=== PATIENT | female | born 1990 | race Hispanic/Latino ===

== ENCOUNTER 2018-02-13 17:17 | Emergency (ER) | payer SELFPAY ==
[2018-02-13] MEDS ORDERED: ONDANSETRON 4 MG/2 ML VIAL ONE (19:31)
[2018-02-13] MEDS ORDERED: MORPHINE 4 MG/ML SYR ONE (19:31)
[2018-02-13 19:34] LABS: Absolute Lymphocytes (CBC) 2.5 K/uL (0.7-4.9); Absolute Monocytes 0.6 K/uL (0.1-1.3); Absolute Neutrophil 6.9 K/uL (1.8-8.0); Basophils % 0.7 % (0-1.3); Eosinophils % 1.7 % (0-4.4); Hematocrit 41.3 % (36.0-45.0); Lymphocytes % 24.4 % (15.3-44.8); MCH 31.9 pg (27.0-35.0); MCV 93.2 fL (80-100); MPV 9.6 fL (7.6-11.3); Monocytes % 5.7 % (3.3-12.3); RBC Red Blood Cell Count 4.43 M/uL (3.86-4.86)
[2018-02-13 19:38] LABS: Potassium 4.1 mmol/L (3.5-5.1)
--- NOTE | 2018-02-13 21:13 | RAD REPORT ---
EXAM DESCRIPTION: US - Pelvis Complete - 02/13/2018 9:03 pm CLINICAL HISTORY: Pelvic pain Preliminary findings provided at the time of the study. COMPARISON: None. TECHNIQUE: Transabdominal pelvic sonography was performed. FINDINGS: Endometrium is 2-3 mm in thickness. No focal endometrial abnormality. No myometrial mass. Uterus is 8.0 x 4.0 x 5.0 cm. No free fluid or blood in the cul-de-sac. Both ovaries are identified a nd normal size. Doppler evaluation shows normal blood flow the ovarian stroma. No suspicious ovarian or adnexal finding. IMPRESSION: Negative transabdominal pelvic ultrasound.
[2018-02-13 21:18] LABS: Urine Blood 1+ (NEG); Urine Glucose NEGATIVE (NEG); Urine Protein NEGATIVE (NEG); Urine Specific Gravity 1.025 (1.005-1.030); Urine pH 6.5 (5.0-7.0)
[2018-02-13] MEDS ORDERED: KETOROLAC 30 MG/ML INJ ONE (21:19)
--- NOTE | 2018-02-13 21:58 | EDPHYS ---
Physician Documentation [facility] Name: Clifton Burger Age: 27 yrs Sex: Female : 1990 Arrival Date: 02/13/2018 Time: 17:23 Bed 19 Private MD: None, None ED Physician Patrick Salgado HPI: 02/13 18:50 This 27 yrs old Female presents to ER via Ambulatory with complaints of jmm Vaginal Bleeding, Abdominal Cramping, Low Back Pain. 18:50 The patient presents with vaginal bleeding that is. Onset: The symptoms/episode jmm began/occurred gradually, 2 day(s) ago. Modifying factors: The symptoms are alleviated by nothing, the symptoms are aggravated by nothing. This is a 27 year old female with a history of pulmonary valve stenosis, ovarian cysts that presents to the ED with left sided pelvic pain. Patient states she is on day 2 of her cycle which is normally painful. Patient states she has to go to the ED regularly due to similar pain. . 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 - Social history:: Smoking status: Patient/guardian denies using tobacco. - Ebola Screening: : No symptoms or risks identified at this time. ROS: 18:50 Constitutional: Negative for fever, chills, and weight loss, Eyes: Negative for injury, jmm pain, redness, and discharge, Cardiovascular: Negative for chest pain, palpitations, and edema, Respiratory: Negative for shortness of breath, cough, wheezing, and pleuritic chest pain. 18:50 MS/Extremity: Negative for injury and deformity, Skin: Negative for injury, rash, and discoloration, Neuro: Negative for headache, weakness, numbness, tingling, and seizure. 18:50 : Positive for vaginal bleeding. 18:50 All other systems are negative. Exam: 18:50 Constitutional: The patient appears in no acute distress, alert, awake. jmm 18:50 Head/Face: atraumatic. Eyes: EOMI, no conjunctival erythema appreciated ENT: Moist jmm Mucus Membranes Neck: Trachea midline, Supple Chest/axilla: Normal chest wall appearance and motion. Cardiovascular: Regular rate and rhythm. No edema appreciated Respiratory: Normal respirations, no respiratory distress appreciated 18:50 Abdomen/GI: Inspection: abdomen appears normal, Palpation: soft, mild abdominal tenderness, in the suprapubic area. 18:50 Back: Normal ROM Skin: General appearance color normal MS/ Extremity: Moves all [facility] extremities, no obvious deformities appreciated, no edema noted to the lower extremities Neuro: Awake and alert, normal gait Psych: Behavior is normal, Mood is normal, Patient is cooperative and pleasant Vital Signs: 17:28 BP 125 / 80; Pulse 97; Resp 16; Temp 97.5; Pulse Ox 98% on R/A; Weight 70.76 kg; Height la1 5 ft. 5 in. (165.10 cm); 19:39 BP 128 / 70; Pulse 67; Resp 16; Pulse Ox 98% on R/A; lp1 20:30 BP 114 / 77; Pulse 61; Resp 16; Pulse Ox 99% on R/A; lp1 21:30 BP 126 / 80; Pulse 66; Resp 16; Pulse Ox 100% on R/A; lp1 17:28 Body Mass Index 25.96 (70.76 kg, 165.10 cm) la1 MDM: 18:50 Patient medically screened. antoine 21:48 Data reviewed: vital signs, nurses notes. Counseling: I had a detailed discussion with [facility] the patient and/or guardian regarding: the historical points, exam findings, and any diagnostic results supporting the discharge/admit diagnosis, lab results, radiology results, the need for outpatient follow up, to return to the emergency department if symptoms worsen or persist or if there are any questions or concerns that arise at home. Response to treatment: the patient's symptoms have markedly improved after treatment. 02/13 19:06 Order name: Abo/rh Typing; Complete Time: 20:59 [facility] 02/13 19:06 Order name: Basic Metabolic Panel; Complete Time: 20:59 [facility] 02/13 19:06 Order name: CBC with Diff; Complete Time: 20:59 [facility] 02/13 19:40 Order name: Urine Dipstick--Ancillary (enter results) [facility] 02/13 19:40 Order name: Urine --Ancillary (enter results); Complete Time: 22:26 [facility] 02/13 19:41 Order name: Urine Dipstick-Ancillary; Complete Time: 22:26 [facility] 02/13 19:06 Order name: IV Saline Lock; Complete Time: 19:26 [facility] 02/13 19:06 Order name: Labs collected and sent; Complete Time: 19:26 [facility] 02/13 19:06 Order name: US Pelvis Complete [facility] 02/13 20:40 Order name: ABO/RH no charge; Complete Time: 20:59 [facility] 02/13 21:14 Order name: US; Complete Time: 22:26 [facility] 02/13 19:06 Order name: NPO; Complete Time: 19:26 [facility] 02/13 19:06 Order name: Urine Dipstick-Ancillary (obtain specimen); Complete Time: :26 [facility] Administered Medications: 19:35 Drug: morphine 4 mg Route: IVP; Site: right antecubital; lp1 20:30 Follow up: Response: Pain is decreased lp1 19:35 Drug: Zofran 4 mg Route: IVP; Site: right antecubital; lp1 20:30 Follow up: Response: No adverse reaction lp1 21:14 Drug: Ketorolac 30 mg Route: IVP; Site: right antecubital; lp1 21:54 Follow up: Response: No adverse reaction lp1 Disposition: 02/14 07:38 Co-signature as Attending Physician, Patrick Salgado MD I agree with the assessment and antoine plan of care. Disposition: 02/13/18 21:58 Discharged to Home. Impression: Pelvic Pain. - Condition is Stable. - Discharge Instructions: Pelvic Pain, Female. - Prescriptions for Ultracet 37.5- 325 mg Oral Tablet - take 1 tablet by ORAL route every 6 hours - for up to 5 days; do not exceed 8 tablets per day.; 12 tablet. - Medication Reconciliation Form, Thank You Letter, Antibiotic Education, Prescription Opioid Use, Work release form form. - Follow up: Private Physician; When: 2 - 3 days; Reason: Recheck today's complaints, Continuance of care, Re-evaluation by your physician. Signatures: Dispatcher [employer] Patrick Klein MD MD cha Mickail, Joel, PA PA jmm Pena, Laura RN RN lp1 Enoch Spears RN RN la1 Corrections: (The following items were deleted from the chart) 02/13 22:05 21:58 02/13/2018 21:58 Discharged to Home. Impression: Pelvic Pain. Condition is lp1 Stable. Forms are Medication Reconciliation Form, Thank You Letter, Antibiotic Education, Prescription Opioid Use. Follow up: Private Physician; When: 2 - 3 days; Reason: Recheck today's complaints, Continuance of care, Re-evaluation by your physician. twan
--- NOTE | 2018-02-13 21:58 | ER ---
Nurse's Notes [facility] Name: Clifton Burger Age: 27 yrs Sex: Female : 1990 Arrival Date: 02/13/2018 Time: 17:23 Bed 19 Private MD: None, None Diagnosis: Pelvic Pain Presentation: 02/13 17:27 Presenting complaint: Patient states: I was told I have cysts on my ovaries and every la1 few months I have very heavy and painful periods, I am soaking like 3 pads per hour with clots and having a lot of abdominal cramping. Transition of care: patient was not received from another setting of care. Onset of symptoms was February 13, 2018. Risk Assessment: Do you want to hurt yourself or someone else? Patient reports no desire to harm self or others. Initial Sepsis Screen: Does the patient meet any 2 criteria? No. Patient's initial sepsis screen is negative. Does the patient have a suspected source of infection? No. Patient's initial sepsis screen is negative. Care prior to arrival: None. 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 - Social history:: Smoking status: Patient/guardian denies using tobacco. - Ebola Screening: : No symptoms or risks identified at this time. Screenin:41 Abuse screen: Denies threats or abuse. Denies injuries from another. Nutritional lp1 screening: No deficits noted. Tuberculosis screening: No symptoms or risk factors identified. Fall Risk None identified. Assessment: 19:15 General: Appears uncomfortable, Behavior is appropriate for age. Pain: Complains of lp1 pain in suprapubic area Pain currently is 8 out of 10 on a pain scale. Quality of pain is described as crampy, sharp. Neuro: Level of Consciousness is awake, alert, obeys commands, Oriented to person, place, time, situation. Cardiovascular: Patient's skin is warm and dry. Respiratory: Respiratory effort is even, unlabored. GI: Abdomen is non-distended. : Reports vaginal bleeding that is bright red. EENT: No signs and/or symptoms were reported regarding the EENT system. Derm: Skin is intact, Skin is dry, Skin is normal. Musculoskeletal: Circulation, motion, and sensation intact. 19:53 Reassessment: Ultrasound at bedside. lp1 21:00 Reassessment: Patient states pelvic pain radiating to back a this time; Aware of lp1 pending discharge. Vital Signs: 17:28 BP 125 / 80; Pulse 97; Resp 16; Temp 97.5; Pulse Ox 98% on R/A; Weight 70.76 kg; Height la1 5 ft. 5 in. (165.10 cm); 19:39 BP 128 / 70; Pulse 67; Resp 16; Pulse Ox 98% on R/A; lp1 20:30 BP 114 / 77; Pulse 61; Resp 16; Pulse Ox 99% on R/A; lp1 21:30 BP 126 / 80; Pulse 66; Resp 16; Pulse Ox 100% on R/A; lp1 17:28 Body Mass Index 25.96 (70.76 kg, 165.10 cm) la1 ED Course: 17:23 Patient arrived in ED. sb2 17:24 None, None is Private Physician. sb2 17:26 Concetta Shin FNP-C is PHCP. kb 17:26 Patrick Salgado MD is Attending Physician. kb 17:27 Triage completed. la1 17:28 Arm band placed on left wrist. la1 18:47 Ramesh Malone PA is PHCP. jmm 18:47 Patrick Salgado MD is Attending Physician. jm 19:06 Carlo Wood LVN is Primary Nurse. em 19:10 Inserted saline lock: 20 gauge in right antecubital area, using aseptic technique. lp1 Blood collected. 19:26 Samantha Doe, RN is Primary Nurse. lp1 19:41 Patient has correct armband on for positive identification. Placed in gown. Pulse ox lp1 on. NIBP on. 21:52 No provider procedures requiring assistance completed. lp1 22:04 IV discontinued, No redness/swelling at site. Pressure dressing applied. lp1 Administered Medications: 19:35 Drug: morphine 4 mg Route: IVP; Site: right antecubital; lp1 20:30 Follow up: Response: Pain is decreased lp1 19:35 Drug: Zofran 4 mg Route: IVP; Site: right antecubital; lp1 20:30 Follow up: Response: No adverse reaction lp1 21:14 Drug: Ketorolac 30 mg Route: IVP; Site: right antecubital; lp1 21:54 Follow up: Response: No adverse reaction lp1 Outcome: 21:58 Discharge ordered by . twan 22:04 Discharged to home ambulatory, with significant other. lp1 22:04 Condition: good 22:04 Discharge instructions given to patient, Instructed on discharge instructions, follow up and referral plans. medication usage, Demonstrated understanding of instructions, follow-up care, medications, Prescriptions given X 1. 22:05 Patient left the ED. lp1 Signatures: Concetta Shin, SUPERVISOR OF INSTRUCTION-C SUPERVISOR OF INSTRUCTION-CkRamesh Salvador PA PA jmm Munoz, Edgar, ADMINISTRATIVE AND PROGRAM SPECIALIST ADMINISTRATIVE AND PROGRAM SPECIALIST Samantha Gan RN RN lp1 Enoch Spears RN RN la1 Margo Zavala 2
== END 2018-02-13 22:05 | disposition home or self-care (01) ==
LOC: ER 17:17
DX: R10.2 Pelvic and perineal pain (principal); I37.0 Nonrheumatic pulmonary valve stenosis
CPT/HCPCS: 36415; 76856; 80048; 81003; 81025; 85025; 86900; 86901; 96374; 99284; J2405

== ENCOUNTER 2018-11-03 22:18 | Emergency (ER) | payer SELFPAY ==
[2018-11-03] MEDS ORDERED: MORPHINE 2 MG/ML SYR ONE (22:59)
[2018-11-03] MEDS ORDERED: NA CHLORIDE 0.9% 1,000 ML ONE (22:59)
[2018-11-03 23:28] LABS: Absolute Lymphocytes (CBC) 3.1 K/uL (0.7-4.9); Basophils % 0.7 % (0-1.3); Hematocrit 40.1 % (36.0-45.0); Lymphocytes % 31.7 % (15.3-44.8); MPV 9.6 fL (7.6-11.3); RBC Red Blood Cell Count 4.29 M/uL (3.86-4.86)
[2018-11-03 23:44] LABS: ALT/SGPT 14 U/L (12-78); AST/SGOT 9 U/L (15-37); Albumin 3.5 g/dL (3.4-5.0); Alkaline Phosphatase 50 U/L (45-117); BUN Blood Urea Nitrogen 10 mg/dL (7-18); Bicarbonate 26 mmol/L (21-32); Bilirubin Direct 0.1 mg/dL (0-0.2); Bilirubin Total 0.6 mg/dL (0.2-1.0); Glucose Level 80 mg/dL (74-106); Lipase 50 U/L (73-393); Potassium 3.7 mmol/L (3.5-5.1); Protein, Total 6.9 g/dL (6.4-8.2); Sodium Level 139 mmol/L (136-145)
[2018-11-04] MEDS ORDERED: MORPHINE 2 MG/ML SYR ONE (00:49)
--- NOTE | 2018-11-04 02:04 | ER ---
Nurse's Notes [facility] Name: Clifton Burger Age: 28 yrs Sex: Female : 1990 Arrival Date: 11/03/2018 Time: 22:21 Bed 13 Private MD: Diagnosis: Pain localized to other parts of lower abdomen-left lower Presentation: 11/03 22:36 Presenting complaint: Patient states: I HAVE HISTORY OF OVARIAN CYSTS AND I HAVE BEEN rv HAVING THIS EPISODES LIKE EVERY MONTH. PAIN USUALLY STARTS 1ST OR 2ND DAY OF MY MENSTRUATION. MY LEFT SIDE IS WORSE THAN MY RIGHT. PAIN IS LIKE THROBBING 10/10 AND CONTINUOUS. AND NOW I BLEED A LOT. I HAVE TWO PADS ALREADY IN THE LAST HOUR. Transition of care: patient was not received from another setting of care. Onset of symptoms was November 03, 2018 at 08:00. Risk Assessment: Do you want to hurt yourself or someone else? Patient reports no desire to harm self or others. Initial Sepsis Screen: Does the patient meet any 2 criteria? No. Patient's initial sepsis screen is negative. Does the patient have a suspected source of infection? No. Patient's initial sepsis screen is negative. Care prior to arrival: None. 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 - Social history:: Smoking status: Patient uses tobacco products, denies chronic smoking, but will smoke occasionally. - Ebola Screening: : No symptoms or risks identified at this time. Screenin:45 Abuse screen: Denies threats or abuse. Denies injuries from another. Nutritional rv screening: No deficits noted. Tuberculosis screening: No symptoms or risk factors identified. Fall Risk None identified. Assessment: 22:44 General: Appears in no apparent distress. uncomfortable, Behavior is calm, cooperative. rv Pain: Complains of pain in pelvis. Neuro: Level of Consciousness is awake, alert, obeys commands, Oriented to person, place, time, situation. Cardiovascular: Patient's skin is warm and dry. Respiratory: Airway is patent. GI: Bowel sounds present X 4 quads. Abd is soft and non tender X 4 quads. : Reports pain in right in left vaginal bleeding that is heavy flow. EENT: No signs and/or symptoms were reported regarding the EENT system. Derm: Skin is intact. Musculoskeletal: No signs and/or symptoms reported regarding the musculoskeletal system. 11/04 00:00 Reassessment: Patient appears in no apparent distress at this time. Patient and/or rv family updated on plan of care and expected duration. Pain level reassessed. Patient is alert, oriented x 3, equal unlabored respirations, skin warm/dry/pink. 01:18 Reassessment: Patient appears in no apparent distress at this time. Patient and/or jb4 family updated on plan of care and expected duration. Pain level reassessed. Patient is alert, oriented x 3, equal unlabored respirations, skin warm/dry/pink. Pt reports a decrease in pain. Patient states feeling better. 02:29 Reassessment: Patient appears in no apparent distress at this time. Patient and/or jb4 family updated on plan of care and expected duration. Pain level reassessed. Patient is alert, oriented x 3, equal unlabored respirations, skin warm/dry/pink. Pt verbalized understanding of d/c and follow up instructions. Vital Signs: 11/03 22:39 BP 142 / 77; Pulse 46; Resp 16; Temp 97.9; Pulse Ox 100% ; Weight 68.04 kg; Height 5 rv ft. 6 in. (167.64 cm); Pain 10/10; 23:00 BP 140 / 89; Pulse 45; Resp 16; Pulse Ox 100% on R/A; rv 23:30 BP 153 / 85; Pulse 43; Resp 14; Pulse Ox 100% on R/A; rv 11/04 00:00 BP 116 / 72; Pulse 43; Resp 15; Pulse Ox 100% on R/A; rv 00:30 BP 139 / 81; Pulse 41; Resp 16; Pulse Ox 100% on R/A; rv 01:18 BP 132 / 77; Pulse 42; Resp 16; Pulse Ox 100% on R/A; jb4 02:29 BP 129 / 89; Pulse 51; Resp 16; Pulse Ox 100% on R/A; jb4 08/22 22:39 Body Mass Index 24.21 (68.04 kg, 167.64 cm) rv ED Course: 11/03 22:21 Patient arrived in ED. am2 22:26 Rudi Mary, JACOB is Primary Nurse. rv 22:34 Patrick Gamboa PA is PHCP. cp 22:34 Vikash Braun MD is Attending Physician. cp 22:39 Triage completed. rv 22:45 Patient has correct armband on for positive identification. Placed in gown. Bed in low rv position. Call light in reach. Side rails up X 1. Pulse ox on. NIBP on. 22:45 Patient placed in the treatment room, on a stretcher, on pulse oximetry, Patient rv notified of wait time. 22:50 Inserted saline lock: 20 gauge in right antecubital area, using aseptic technique. rv Blood collected. 11/04 00:55 CT Abd/Pelvis - IV Contrast Only Sent. rv 01:16 CT Abd/Pelvis - IV Contrast Only In Process Unspecified. EDMS 02:03 Andrew Paz MD is Referral Physician. cp 02:29 No provider procedures requiring assistance completed. IV discontinued, intact, jb4 bleeding controlled, No redness/swelling at site. Pressure dressing applied. Administered Medications: 11/03 23:03 Drug: NS 0.9% 1000 ml Route: IV; Rate: 1 bolus; Site: right antecubital; rv 11/04 00:46 Follow up: IV Status: Completed infusion; IV Intake: 1000ml rv 11/03 23:03 Drug: morphine 2 mg {Note: rass 0.} Route: IVP; Site: right antecubital; rv 11/04 00:50 Drug: morphine 2 mg {Note: RASS 0.} Route: IVP; Site: right antecubital; rv 01:23 Follow up: Response: No adverse reaction; Pain is decreased; RASS: Alert and Calm (0) jb4 02:20 Drug: TORadol 30 mg Route: IVP; Site: right antecubital; jb4 02:32 Follow up: Response: No adverse reaction; Medication administered at discharge. jb4 Intake: 00:46 IV: 1000ml; Total: 1000ml. rv Outcome: 02:04 Discharge ordered by . cp 02:29 Discharged to home via wheelchair, with friend. jb4 02:29 Condition: stable 02:29 Discharge instructions given to patient, Instructed on discharge instructions, follow up and referral plans. medication usage, Demonstrated understanding of instructions, follow-up care, medications, Prescriptions given X 1. 02:33 Patient left the ED. jb4 Signatures: Dispatcher [employer] EDMS Patrick Gamboa PA PA cp Bryson, James, RN RN jb4 Lori Whitney 2 Rudi Mary RN RN rv
--- NOTE | 2018-11-04 02:04 | EDPHYS ---
Physician Documentation [facility] [place] Name: Clifton Burger Age: 28 yrs Sex: Female : 1990 Arrival Date: 11/03/2018 Time: 22:21 Bed 13 Private MD: ED Physician Vikash Braun HPI: 11/03 23:00 This 28 yrs old Female presents to ER via Ambulatory with complaints of cp Abdominal Pain - Lower. 23:00 The patient presents with abdominal pain in the left lower quadrant. cp 23:00 Onset: The symptoms/episode began/occurred today. The symptoms radiate to left back. cp Associated signs and symptoms: Pertinent positives: vaginal bleeding, Pertinent negatives: blood in stools, constipation, diarrhea, dysuria, fever, hematuria, nausea, vomiting. The symptoms are described as constant. 23:00 The patient has experienced similar episodes in the past, but today's symptoms are cp worse, more painful, Patient reports episodes of pain in lower abdomen in the past when she was diagnosed with ovarian cysts and when having menses. 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 - Social history:: Smoking status: Patient uses tobacco products, denies chronic smoking, but will smoke occasionally. - Ebola Screening: : No symptoms or risks identified at this time. ROS: 23:05 Constitutional: Negative for body aches, chills, fever, poor PO intake. cp 23:05 Eyes: Negative for injury, pain, redness, and discharge. cp 23:05 ENT: Negative for drainage from ear(s), ear pain, sore throat, difficulty swallowing, difficulty handling secretions. 23:05 Cardiovascular: Negative for chest pain, palpitations. 23:05 Respiratory: Negative for cough, shortness of breath, wheezing. 23:05 Abdomen/GI: Positive for abdominal pain, of the left lower quadrant, Negative for vomiting, diarrhea, constipation, anorexia, black/tarry stool, rectal bleeding. 23:05 Back: Positive for radiated pain. 23:05 : Positive for vaginal bleeding, Negative for urinary symptoms. 23:05 Skin: Negative for cellulitis, rash. 23:05 Neuro: Negative for altered mental status, headache, weakness. 23:05 All other systems are negative. Exam: 23:10 Constitutional: The patient appears in no acute distress, alert, awake, non-toxic, well cp developed, well nourished. 23:10 Head/Face: Normocephalic, atraumatic. cp 23:10 Eyes: Periorbital structures: appear normal, Conjunctiva: normal, Sclera: no cp appreciated abnormality, Lids and lashes: appear normal, bilaterally. 23:10 ENT: External ear(s): are unremarkable, Nose: is normal, Mouth: Lips: moist, Oral cp mucosa: pink and intact, moist, Posterior pharynx: is normal, airway is patent, no erythema, no exudate. 23:10 Chest/axilla: Inspection: normal, Palpation: is normal, no crepitus, no tenderness. 23:10 Cardiovascular: Rate: bradycardic, Rhythm: regular. 23:10 Respiratory: the patient does not display signs of respiratory distress, Respirations: normal, no use of accessory muscles, no retractions, no splinting, no tachypnea, labored breathing, is not present, Breath sounds: are clear throughout, no decreased breath sounds, no stridor, no wheezing. 23:10 Abdomen/GI: Inspection: abdomen appears normal, Bowel sounds: active, all quadrants, Palpation: soft, in all quadrants, moderate abdominal tenderness, in the left lower quadrant, rebound tenderness, is not appreciated, voluntary guarding, is elicited in the left lower quadrant. 23:10 Back: pain, that is mild, of the left low back, ROM is normal. 23:10 Neuro: Orientation: to person, place \T\ time. Mentation: is normal. 11/04 02:00 : Pelvic Exam: The exam is refused by the patient/guardian. The risks and cp consequences are understood by the patient. Vital Signs: 11/03 22:39 BP 142 / 77; Pulse 46; Resp 16; Temp 97.9; Pulse Ox 100% ; Weight 68.04 kg; Height 5 rv ft. 6 in. (167.64 cm); Pain 12/22; 23:00 BP 140 / 89; Pulse 45; Resp 16; Pulse Ox 100% on R/A; rv 23:30 BP 153 / 85; Pulse 43; Resp 14; Pulse Ox 100% on R/A; rv 11/04 00:00 BP 116 / 72; Pulse 43; Resp 15; Pulse Ox 100% on R/A; rv 00:30 BP 139 / 81; Pulse 41; Resp 16; Pulse Ox 100% on R/A; rv 01:18 BP 132 / 77; Pulse 42; Resp 16; Pulse Ox 100% on R/A; jb4 02:29 BP 129 / 89; Pulse 51; Resp 16; Pulse Ox 100% on R/A; jb4 11/03 22:39 Body Mass Index 24.21 (68.04 kg, 167.64 cm) rv MDM: 11/03 22:53 Patient medically screened. cp 23:00 Differential diagnosis: Ectopic , Endometriosis, non-specific abd pain, cp Ovarian Torsion, Pelvic Inflammatory Disease, Pyelonephritis, Tubal Ovarian Abcess, Ureterolithiasis, urinary tract infection. 11/04 02:02 Data reviewed: vital signs, nurses notes, lab test result(s), radiologic studies, CT cp scan, and as a result, I will discharge patient. 02:02 Counseling: I had a detailed discussion with the patient and/or guardian regarding: the cp historical points, exam findings, and any diagnostic results supporting the discharge/admit diagnosis, lab results, radiology results, to return to the emergency department if symptoms worsen or persist or if there are any questions or concerns that arise at home. 02:02 Response to treatment: the patient's symptoms have markedly improved after treatment, cp and as a result, I will discharge patient. Special discussion: Based on the patient's Hx, exam, and Dx evaluation, there is no indication for emergent surgery or inpatient Tx. It is understood by the patient/guardian that if the Sx's persist or worsen they need to return immediately for re-evaluation. 11/03 22:57 Order name: Basic Metabolic Panel; Complete Time: 00:09 cp 11/04 00:09 Interpretation: Normal except: CL 110. cp 11/03 22:57 Order name: CBC with Diff; Complete Time: 00:09 cp 11/04 00:09 Interpretation: Normal except: EOSINOPHIL % 4.5. cp 11/03 21:57 Order name: Creatinine for Radiology; Complete Time: 00:09 cp 11/03 22:57 Order name: Hepatic Function; Complete Time: 00:09 cp 11/04 00:09 Interpretation: Normal except: AST 9; A/G 1.0. 11/03 22:57 Order name: Lipase; Complete Time: 00:09 cp 11/04 00:49 Interpretation: Abnormal: LIP 50. 11/03 22:57 Order name: Urine Microscopic Only 11/03 22:57 Order name: IV Saline Lock; Complete Time: 23:03 11/03 22:57 Order name: Labs collected and sent; Complete Time: 23:07 cp 11/03 23:00 Order name: CT Abd/Pelvis - IV Contrast Only 11/04 01:04 Order name: Urine Dipstick--Ancillary (enter results) [facility] 11/04 01:04 Order name: Urine --Ancillary (enter results) [facility] 11/03 22:57 Order name: Urine Dipstick-Ancillary (obtain specimen); Complete Time: 00:56 cp 11/03 22:57 Order name: Urine Test (obtain specimen); Complete Time: 00:56 cp Administered Medications: 11/03 23:03 Drug: NS 0.9% 1000 ml Route: IV; Rate: 1 bolus; Site: right antecubital; rv 11/04 00:46 Follow up: IV Status: Completed infusion; IV Intake: 1000ml 11/03 23:03 Drug: morphine 2 mg {Note: rass 0.} Route: IVP; Site: right antecubital; 11/04 00:50 Drug: morphine 2 mg {Note: RASS 0.} Route: IVP; Site: right antecubital; rv 01:23 Follow up: Response: No adverse reaction; Pain is decreased; RASS: Alert and Calm (0) jb4 02:20 Drug: TORadol 30 mg Route: IVP; Site: right antecubital; jb4 02:32 Follow up: Response: No adverse reaction; Medication administered at discharge. jb4 Disposition: 04:18 Co-signature as Attending Physician, Vikash Braun MD I agree with the assessment and kdr plan of care. Disposition: 11/04/18 02:04 Discharged to Home. Impression: Pain localized to other parts of lower abdomen - left lower. - Condition is Stable. - Discharge Instructions: Abdominal Pain, Adult. - Prescriptions for Naprosyn 500 mg Oral Tablet - take 1 tablet by ORAL route 2 times per day take with food; 20 tablet. - Medication Reconciliation Form, Thank You Letter, Antibiotic Education, Prescription Opioid Use, Work release form form. - Follow up: Andrew Paz MD; When: 2 - 3 days; Reason: Worsening of condition. - Problem is new. - Symptoms have improved. Signatures: Dispatcher [employer] EDMS Vikash Braun MD MD [facility] Patrick Gamboa PA PA cp Santino Allen, RN RN jb4 Rudi Mary RN RN rv Corrections: (The following items were deleted from the chart) 02:33 02:04 11/04/2018 02:04 Discharged to Home. Impression: Pain localized to other parts of jb4 lower abdomen - left lower. Condition is Stable. Forms are Medication Reconciliation Form, Thank You Letter, Antibiotic Education, Prescription Opioid Use. Follow up: Andrew Paz; When: 2 - 3 days; Reason: Worsening of condition. Problem is new. Symptoms have improved. cp
[2018-11-04] MEDS ORDERED: KETOROLAC 30 MG/ML INJ ONE (02:16)
[2018-11-04 02:36] LABS: Urine Blood 1+ (NEG); Urine Glucose NEGATIVE (NEG); Urine Protein NEGATIVE (NEG); Urine Specific Gravity 1.025 (1.005-1.030)
[2018-11-04 02:37] LABS: Urine Culture Reflex Order REFLEXED; Urine Trichomonas PRESENT (NONE SEEN)
[2018-11-04 02:38] LABS: Urine Bacteria <20 /HPF (<20); Urine Mucus 2+ /HPF (NONE SEEN); Urine RBC <5 /HPF (NONE SEEN)
--- NOTE | 2018-11-04 10:14 | RAD REPORT ---
EXAM DESCRIPTION: CT - Abdomen Pelvis W Contrast - 11/04/2018 2:04 am CLINICAL HISTORY: 28 years Female lower abdomen pain. History of ovarian cysts TECHNIQUE: Contiguous axial images obtained through the abdomen and pelvis following intravenous con trast administration. Coronal and sagittal reformatted images provided. This CT exam was performed according to our departmental dose-optimization program, which includes on e or more of the following dose reduction techniques: automated exposure control, adjustment of the m A and/or kV according to patient size, and/or use of iterative reconstruction technique. COMPARISON: Comparison is made to the prior examination dated 08/14/2012. FINDINGS: Vaginal tampon in place. Small amount of simple free fluid in the cul-de-sac. No visualize d adnexal mass. Normal uterus and urinary bladder. Minimal right basilar atelectasis. The liver, biliary tree, gallbladder, pancreas, spleen, adrenal glands, and kidneys are normal. There is no bowel inflammation, obstruction, free intraperitoneal air, or abdominal ascites. The appe ndix is normal. No abdominal or pelvic lymphadenopathy. No acute osseous abnormality. IMPRESSION: Small amount of free fluid in the cul-de-sac without visualized adnexal mass. Normal [place] and urinary bladder. No other acute findings in the abdomen or pelvis. Electronically signed by: Fanta Wilhelm MD 11/04/2018 1:34 AM CDT Due to temporary technical issues with the PACS/Fluency reporting system, reports are being signed by the in house radiologist as a courtesy to ensure prompt reporting. The interpreting radiologist is f ully responsible for the content of the report.
== END 2018-11-04 02:33 | disposition home or self-care (01) ==
LOC: ER 22:18
DX: R10.32 Left lower quadrant pain (principal)
CPT/HCPCS: 36415; 74177; 80048; 80076; 81003; 81015; 81025; 83690; 85025; 87086; 87088; 96361; 96374; 96375; 99284; J2270; J7030; Q9967